=== PATIENT | male | born 1955 | race Caucasian/White ===

== ENCOUNTER 2018-06-21 09:01 | Observation (INO) ==
--- NOTE | 2018-06-21 09:40 | Emergency Department Note ---
Disposition Clinical Impression: Pain of right lower extremity Myositis Qualifiers: Myositis type: unspecified type Myositis location: thigh Laterality: right Qualified Code(s): M60.851 - Other myositis, right thigh Disposition: Admitted As Inpatient Condition: Good Time of Disposition: 14:33 Extremity Problem HPI - General Chief complaint: ED Extremity Problem,Nontraumatic Stated complaint: leg getting worse sp surgery Time Seen by Provider: 06/21/18 09:05 Source: patient Mode of arrival: private vehicle Limitations: no limitations Nursing Notes Reviewed: Yes Vital Signs Reviewed: Yes - History of Present Illness HPI Narrative: Patient is a 62-year-old male who 8 weeks ago had a stent placed in an unknown right thigh artery while living in [place] because he was having trouble with walking and pain. States that the pain started to get worse 4 weeks ago, unable to describe the pain, just states that it hurts. Made worse by walking, made better by elevating it. He has a history of coronary artery bypass graft, UT, brain aneurysm in the right side of his brain, and a Reji filter that he is not sure where it is at. States that he normally lives in [place], he traveled here 2 weeks ago because he wanted to "find doctors who knew what they were doing". Patient states that he had quit smoking right before the surgery, but picked back up when he came to [place] and now smokes about half pack per day, with an occasional drink, denies any illicit or illegal drugs. He is endorsing some numbness and tingling in both of his feet, subjective fevers, abdominal pain and vomiting when he takes a trazodone. Pain Scale: 7 - Related Data Home Medications Medication Instructions Recorded Confirmed Amlodipine Besylate 10 mg PO DAILY 06/21/18 06/21/18 Aspirin [Adult Aspirin] 81 mg PO DAILY 06/21/18 06/21/18 Clopidogrel [Plavix] 75 mg PO DAILY 06/21/18 06/21/18 Ergocalciferol (VITAMIN D2) 400 unit PO DAILY 06/21/18 06/21/18 [Vitamin D] Furosemide [Lasix] 20 mg PO DAILY 06/21/18 06/21/18 Omeprazole [PriLOSEC] 80 mg PO DAILY 06/21/18 06/21/18 Rosuvastatin Calcium [Crestor] 5 mg PO Q48H 06/21/18 06/21/18 Tamsulosin HCl [Flomax] 0.4 mg PO DAILY 06/21/18 06/21/18 Allergies Allergy/AdvReac Type Severity Reaction Status Date / Time No Known Allergies Allergy Verified 06/21/18 13:35 Constitutional: Reports: fever. Denies: chills Cardiovascular: Denies: chest pain, dyspnea on exertion Respiratory: Denies: cough, dyspnea Gastrointestinal: Reports: abdominal pain (when he takes a trazadone), nausea ( when he takes a trazadone). Denies: vomiting, diarrhea, constipation Neurological: Reports: paresthesias (primitivo feet). Denies: headache, weakness Hematological/Lymphatic: Reports: easy bruising (on plavix) Past Medical History - Past Medical History Medical history: Reports: coronary artery disease, GERD, myocardial infarction, peripheral artery disease Psychiatric history: Reports: no psych history - Social History Smoking Status: Current every day smoker Smokeless Tobacco Status: No Alcohol use: Reports: occasionally Drug use: Reports: none Physical Exam Vitals WNL - 96% on RA, 75bpm, 18RR, 127/78, 98.1F - General Limitations: no limitations General appearance: alert, in no apparent distress - Head Head exam: atraumatic, normocephalic - Eye Eye exam: Present: normal appearance, PERRL. Absent: scleral icterus, conjunctival injection - ENT ENT exam: normal exam, normal oropharynx, mucous membranes moist - Neck Neck exam: Present: normal inspection, full ROM - Chest Chest inspection: Present: normal inspection, symmetric chest wall rise, other ( midline scar) - Respiratory Respiratory exam: Present: normal lung sounds bilaterally. Absent: respiratory distress, wheezes - Cardiovascular Cardiovascular exam: Present: regular rate, normal rhythm - Abdominal Exam Abdominal exam: Present: soft, Non-Tender - Expanded Lower Extremity Exam Upper leg exam: Present: swelling, other (scar in right femoral area with swelling and tenderness to palpation running down below his knee) Neurovascular/Tendon exam: Present: other (primitivo dorsalis pedis pulses palpable, right posterior tibialis appreciated with doppler, left palpable.) - Skin Skin exam: Present: warm, dry, intact, other (primitivo LE cool to the touch) Course Course Narrative: In addition to RT LE bypass, pt has a hx of LT LE bypass in the past, will get a CTA Aortogram with runoff to check patency of grafts. Pt also complaining of some subjective fevers so will check coagulation factors and basic blood work to include CBC and BMP to r/o infection. Pt does not have any appreciable wheezes on exam, despite increased mucus production. Recently took up smoking again, increased mucus production could be due to that, will administer duoneb. - Reevaluation(s) Reevaluation #1: Performed bedside TERENCE using handheld doppler and manual sphygmomanometer: Right: 150/140 = 1.07 - Normal Left: 65/140 = .46 - Indicative of Severe arterial disease Time: 12:11 Reevaluation #2: Pt CTA Aortagram with Follow-through did not demonstration pseudoaneurysm or clots, but did demonstrate findings consistent myositis, per radiologist report. Dr Cardoso, Hospitalist, was consulted and was not sure if this would be managed by Orthopedics here or not. 1330: Spoke with Dr Witt, Orthopedist, who stated that he also does not manage myositis and that vascular surgery should be consulted as this is s/p vascular surgery and they may be better versed in complications of such surgeries. 1338: Spoke with Dr. Cason, vascular surgeon, who states that myositis is not a usual complication of a femoral-popliteal bypass graft. Additionally, he states that this could likely, based on his interpretation of the CT, be a chronic hematoma that is resolving, or an inflammatory process. Recommended contact with IR to schedule muscle biopsy. 1500: Spoke with Lashonda in Interventional Radiology who states that they could do a muscle biopsy on Sunday as long as he is NPO after midnight this Sunday. She asked for the patient's name and put him on the schedule. Time: 13:27 Vital Signs Temperature 98.1 F 06/21/18 09:09 Pulse Rate 75 06/21/18 09:09 Respiratory Rate 18 06/21/18 09:09 Blood Pressure 127/78 06/21/18 09:09 O2 Sat by Pulse Oximetry 96 06/21/18 09:09 Temperature 98.1 F 06/21/18 09:13 Pulse Rate 75 06/21/18 14:53 Respiratory Rate 20 06/21/18 14:53 Blood Pressure 122/89 06/21/18 14:53 O2 Sat by Pulse Oximetry 96 06/21/18 14:53 Oxygen Delivery Oxygen Delivery Room Air Extremity Problem, [facility] - [facility] Narrative Medical decision making narrative: Pt's CT scan showed a patent graft on the right leg, did not demonstrate a pseudoaneurysm, but soft tissue findings were concerning for infection v myositis. Additionally, his CK was elevated at 2,526 which is concerning for rhabdomyolysis. He will need to be admitted to the hospital for further management and workup. Interventional radiology will plan to do a muscle biopsy to further determine etiology of CT findings, spoke with Lashonda who placed the patient on the schedule for Sunday and requests he be NPO after midnight on Sunday. Hospitalist Dr. Li who agrees to admit the patient for further management and workup. Explained these findings to the patient and he verbalized that he understood and agreed with the plan. Pt remained stable while in the department. Pain was controlled and needs were addressed. Vital Signs Temperature 98.1 F 06/21/18 09:09 Pulse Rate 75 06/21/18 09:09 Respiratory Rate 18 06/21/18 09:09 Blood Pressure 127/78 06/21/18 09:09 O2 Sat by Pulse Oximetry 96 06/21/18 09:09 Temperature 98.1 F 06/21/18 09:13 Pulse Rate 75 06/21/18 14:53 Respiratory Rate 20 06/21/18 14:53 Blood Pressure 122/89 06/21/18 14:53 O2 Sat by Pulse Oximetry 96 06/21/18 14:53 Oxygen Delivery Oxygen Delivery Room Air - Medical Records Medical records reviewed: Yes I reviewed the patient's medical records. - Lab Data Lab results reviewed: Yes I reviewed the patient's lab results. Result diagrams: 06/21/18 10:05 06/21/18 10:05 Lab Results 06/21/18 06/21/18 06/21/18 Range/Units 10:05 10:05 10:05 WBC 7.0 (4.3-11.1) K/mcL RBC 4.71 (4.19-5.50) M/mcL Hgb 15.0 (12.9-16.9) g/dL Hct 43.6 (37.5-50.1) % MCV 92.6 (83.0-100.0) fL MCH 31.8 (28.0-33.3) pg MCHC 34.4 (31.6-35.5) g/dL RDW 12.4 (11.5-14.5) % Plt Count 230 (140-400) K/mcL MPV 9.7 (9.4-12.4) fL Immature Gran % 0.4 (0-4) % Seg Neutrophils % 72.4 % Lymphocytes % 14.1 % Monocytes % 9.7 % Eosinophils % 2.7 % Basophils % 0.7 % Neutrophils # 5.1 (1.6-8.9) K/mcL Lymphocytes # 1.0 (0.6-4.6) K/mcL Monocytes # 0.7 (0.0-1.3) K/mcL Eosinophils # 0.2 (0.0-0.6) K/mcL Basophils # 0.1 (0.0-0.2) K/mcL ESR (0-10) mm/hr PT 12.1 (9.4-12.1) Seconds INR 1.1 APTT 31.0 (26.0-36.0) Seconds Sodium 131 L (136-145) mEq/L Potassium 4.3 (3.5-5.1) mEq/L Chloride 98 (98-107) mEq/L Carbon Dioxide 23 (23-29) mEq/L BUN 8 (8-23) mg/dL Creatinine 0.87 (0.70-1.30) mg/dL Est GFR ( Amer) > 60 (> 60) Est GFR (Non-Af Amer) > 60 (> 60) BUN/Creatinine Ratio 9 (6-26) Glucose 104 (70-105) mg/dL Calculated Osmolality 271 L (280-300) Calcium 9.6 (8.6-10.3) mg/dL Creatine Kinase 2526 H (30-223) Units/L C-Reactive Protein 22 H (Less than 10) mg/L 06/21/18 Range/Units 12:36 WBC (4.3-11.1) K/mcL RBC (4.19-5.50) M/mcL Hgb (12.9-16.9) g/dL Hct (37.5-50.1) % MCV (83.0-100.0) fL MCH (28.0-33.3) pg MCHC (31.6-35.5) g/dL RDW (11.5-14.5) % Plt Count (140-400) K/mcL MPV (9.4-12.4) fL Immature Gran % (0-4) % Seg Neutrophils % % Lymphocytes % % Monocytes % % Eosinophils % % Basophils % % Neutrophils # (1.6-8.9) K/mcL Lymphocytes # (0.6-4.6) K/mcL Monocytes # (0.0-1.3) K/mcL Eosinophils # (0.0-0.6) K/mcL Basophils # (0.0-0.2) K/mcL ESR 42 H (0-10) mm/hr PT (9.4-12.1) Seconds INR APTT (26.0-36.0) Seconds Sodium (136-145) mEq/L Potassium (3.5-5.1) mEq/L Chloride (98-107) mEq/L Carbon Dioxide (23-29) mEq/L BUN (8-23) mg/dL Creatinine (0.70-1.30) mg/dL Est GFR ( Amer) (> 60) Est GFR (Non-Af Amer) (> 60) BUN/Creatinine Ratio (6-26) Glucose (70-105) mg/dL Calculated Osmolality (280-300) Calcium (8.6-10.3) mg/dL Creatine Kinase (30-223) Units/L C-Reactive Protein (Less than 10) mg/L - Radiology Data Radiology results reviewed: Yes I reviewed the patient's radiology results. Aorta w/Runoff CTA 06/21/18 09:59 IMPRESSION: 1. Status post right lower extremity fem-pop bypass graft placement. The graft is patent. No evidence of acute arterial thrombus. 2. The adductor musculature in the right thigh appears heterogeneous and more prominent when compared with the left. Findings are concerning for myositis. No drainable fluid collection or abscess. 3. Severe vascular atherosclerotic disease. This is most notable for chronic occlusion of the left SFA, with reconstitution of the left popliteal artery, as well as severe bilateral popliteal and tibioperoneal artery stenoses. 4. 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 5. Indeterminate 1.1 cm right adrenal nodule. A follow-up adrenal protocol CT or MRI in 1 year is recommended. D/ / 06/21/2018 12:25:57 Hollis Kwon MD / vi Interpreting Provider: Hollis Kwon MD - EKG Data EKG attestation: Yes I reviewed and interpreted this EKG. EKG results narrative: HR 74, rhythm sinus, axis normal. NE 164, QRS 122. No evidence of ST elevation or depression. Q waves appreciated in II, III, aVF which correlates with hx of UT. Interpretation is limited by poor study quality and baseline wander.
[2018-06-21] MEDS ORDERED: Isovue-370 500 ML INFUS..BTL IV ONE (09:59)
[2018-06-21] MEDS ORDERED: *HR* FentaNYL (PF) 100 MCG/2 ML VIAL IVP ONE ×2 (10:05→12:40)
[2018-06-21 10:18] LABS: Basophils # 0.1 K/mcL (0.0-0.2); Basophils % 0.7 %; Eosinophils # 0.2 K/mcL (0.0-0.6); Eosinophils % 2.7 %; Hematocrit 43.6 % (37.5-50.1); Immature Granulocytes % 0.4 % (0-4); Lymphocytes % 14.1 %; Mean Corpuscular HGB Conc 34.4 g/dL (31.6-35.5); Mean Corpuscular Hemoglobin 31.8 pg (28.0-33.3); Mean Corpuscular Volume 92.6 fL (83.0-100.0); Mean Platelet Volume 9.7 fL (9.4-12.4); Monocytes # 0.7 K/mcL (0.0-1.3); Monocytes % 9.7 %; Neutrophils # 5.1 K/mcL (1.6-8.9); Platelet Count 230 K/mcL (140-400); Red Blood Count 4.71 M/mcL (4.19-5.50); Red Cell Distribution Width 12.4 % (11.5-14.5); Segmented Neutrophils % 72.4 %
[2018-06-21 10:27] LABS: INR 1.1; Prothrombin Time 12.1 Seconds (9.4-12.1)
[2018-06-21 10:38] LABS: BUN/Creatinine Ratio 9 (6-26); Blood Urea Nitrogen 8 mg/dL (8-23); Calcium 9.6 mg/dL (8.6-10.3); Carbon Dioxide 23 mEq/L (23-29); Chloride 98 mEq/L (98-107); Glucose 104 mg/dL (70-105); Osmolality,Calculated 271 (280-300); Potassium 4.3 mEq/L (3.5-5.1); Sodium 131 mEq/L (136-145); eGFR For Non-African Americans > 60 (> 60)
--- NOTE | 2018-06-21 11:27 | Emergency Department Note ---
Disposition Clinical Impression: Pain of right lower extremity Disposition: Still a Patient Forms: ED Satisfaction Letter General Adult HPI - General Chief complaint: ED Extremity Problem,Nontraumatic Stated complaint: leg getting worse sp surgery Time Seen by Provider: 06/21/18 09:05 Source: patient Mode of arrival: private vehicle Limitations: no limitations - History of Present Illness HPI Narrative: ED attending Attestation note Patient was seen with the emergency medicine resident Mari Jaime: I have independently evaluated the patient and have had [id number] contact with the patient. I have reviewed the history and physical, evaluation and management plan in addition to the pertinent laboratory, ancillary and imaging studies along with consultation recommendations if applicable. I agree with their evaluation, management and disposition. Briefly: 62-year-old male had surgery at the end of april attestation in [place] for stent in his right leg. Presents with right leg pain. Past several days of Cipro but no recorded fever. History pulses there is no peripheral edema neurovascular copy was noted the sites appear to be healing well although tender on Palpation near the Right Inguinal Crease Is No Signs of Wound Infection Leading for Tissue Necrosis. Patient Will Get a Aortogram with Runoff to Evaluate This Lower Extremity of Systems and Check for among Other Things Pseudoaneurysm Infection Blockage Dissection among Others. Disposition Pending Pain Scale: 10 - Related Data Home Medications Medication Instructions Recorded Confirmed Amlodipine Besylate 10 mg PO DAILY 06/21/18 06/21/18 Clopidogrel [Plavix] 75 mg PO DAILY 06/21/18 06/21/18 Furosemide [Lasix] 20 mg PO DAILY 06/21/18 06/21/18 Rosuvastatin [Crestor] 5 mg PO HS 06/21/18 06/21/18 Allergies Allergy/AdvReac Type Severity Reaction Status Date / Time clopidogrel [From Plavix] Allergy Rash Verified 04/04/16 15:29 Constitutional: Reports: fever. Denies: chills Cardiovascular: Denies: chest pain, dyspnea on exertion Respiratory: Denies: cough, dyspnea Gastrointestinal: Reports: abdominal pain (when he takes a trazadone), nausea ( when he takes a trazadone). Denies: vomiting, diarrhea, constipation Neurological: Reports: paresthesias (primitivo feet). Denies: headache, weakness Hematological/Lymphatic: Reports: easy bruising (on plavix) Past Medical History - Past Medical History Medical history: Reports: coronary artery disease, GERD, myocardial infarction, peripheral artery disease Psychiatric history: Reports: no psych history - Social History Smoking Status: Current every day smoker Smokeless Tobacco Status: No Alcohol use: Reports: occasionally Drug use: Reports: none Physical Exam - General Limitations: no limitations General appearance: alert, in no apparent distress Course Vital Signs Temperature 98.1 F 06/21/18 09:09 Pulse Rate 75 06/21/18 09:09 Respiratory Rate 18 06/21/18 09:09 Blood Pressure 127/78 06/21/18 09:09 O2 Sat by Pulse Oximetry 96 06/21/18 09:09 Temperature 98.1 F 06/21/18 09:13 Pulse Rate 73 06/21/18 10:54 Respiratory Rate 20 06/21/18 10:54 Blood Pressure 152/82 06/21/18 10:54 O2 Sat by Pulse Oximetry 100 06/21/18 10:54 Oxygen Delivery Oxygen Delivery Room Air Medical Decision Making - Lab Data Result diagrams: 06/21/18 10:05 06/21/18 10:05 Lab Results 06/21/18 06/21/18 06/21/18 Range/Units 10:05 10:05 10:05 WBC 7.0 (4.3-11.1) K/mcL RBC 4.71 (4.19-5.50) M/mcL Hgb 15.0 (12.9-16.9) g/dL Hct 43.6 (37.5-50.1) % MCV 92.6 (83.0-100.0) fL MCH 31.8 (28.0-33.3) pg MCHC 34.4 (31.6-35.5) g/dL RDW 12.4 (11.5-14.5) % Plt Count 230 (140-400) K/mcL MPV 9.7 (9.4-12.4) fL Immature Gran % 0.4 (0-4) % Seg Neutrophils % 72.4 % Lymphocytes % 14.1 % Monocytes % 9.7 % Eosinophils % 2.7 % Basophils % 0.7 % Neutrophils # 5.1 (1.6-8.9) K/mcL Lymphocytes # 1.0 (0.6-4.6) K/mcL Monocytes # 0.7 (0.0-1.3) K/mcL Eosinophils # 0.2 (0.0-0.6) K/mcL Basophils # 0.1 (0.0-0.2) K/mcL PT 12.1 (9.4-12.1) Seconds INR 1.1 APTT 31.0 (26.0-36.0) Seconds Sodium 131 L (136-145) mEq/L Potassium 4.3 (3.5-5.1) mEq/L Chloride 98 (98-107) mEq/L Carbon Dioxide 23 (23-29) mEq/L BUN 8 (8-23) mg/dL Creatinine 0.87 (0.70-1.30) mg/dL Est GFR ( Amer) > 60 (> 60) Est GFR (Non-Af Amer) > 60 (> 60) BUN/Creatinine Ratio 9 (6-26) Glucose 104 (70-105) mg/dL Calculated Osmolality 271 L (280-300) Calcium 9.6 (8.6-10.3) mg/dL
[2018-06-21] MEDS ORDERED: *HR* OxyCODONE/APAP 5/325 TABLET PO ONE (12:40)
[2018-06-21 13:05] LABS: C-Reactive Protein 22 mg/L (Less than 10); Creatine Kinase 2526 Units/L (30-223)
[2018-06-21] MEDS ORDERED: Naloxone 0.4 MG/ML INJ IVP PRN (15:43)
[2018-06-21] MEDS ORDERED: Acetaminophen 325 MG TABLET PO PRN (15:43)
--- NOTE | 2018-06-21 15:54 | Internal Med History&Physical ---
Date of Encounter: 06/21/18 Time of Encounter: 15:52 Internal Medicine - H&P: HPI Admitted From: Home Plans for Post Hospital Care: Home History of present illness: Patient is a 62-year-old male who 8 weeks ago had a stent placed in an unknown right thigh artery because he was having trouble with walking and pain. States that the pain started to get worse 4 weeks ago, unable to describe the pain, just states that it hurts. Made worse by walking, made better by elevating it. He has a history of coronary artery bypass graft, [place], brain aneurysm in the right side of his brain, and a Reji filter. States that he normally lives in [place], he traveled here 2 weeks ago because he wanted to "find doctors who knew what they were doing". Patient states that he had quit smoking right before the surgery, but picked back up when he came to [place] and now smokes about half pack per day, with an occasional drink, denies any illicit or illegal drugs. He is endorsing some numbness and tingling in both of his feet, subjective fevers, abdominal pain and vomiting when he takes trazodone. At the ED, patient vital signs were stable, labs revealed elevated CPK, CTA of the abdomen and lower treatment showed patent right side femoropopliteal bypass graft, chronic occlusion of bilateral internal iliac artery, a right external iliac artery stent is patent, there is a moderate proximal juxta stent stenosis , the right profunda femoris is severely diseased, with severe stenosis present , the adductor musculature in the right thigh appears heterogeneously and more prominent when compared with the left, findings are concerning for myositis. Due to his severe symptoms, patient will be admitted as observation for further evaluation. Past Med Surg Social Fam HX - Past Medical History Medical history: coronary artery disease, GERD, myocardial infarction, peripheral artery disease Psychiatric history: no psych history - Past Surgical History Additional surgical history: aneurysm right brain - Social History Smoking Status: Current every day smoker Smokeless Tobacco Status: No Alcohol use: occasionally Drug use: none Internal Medicine - H&P: Meds Amlodipine Besylate 10 mg PO DAILY 06/21/18 [History] Aspirin [Adult Aspirin] 81 mg PO DAILY 06/21/18 [History] Clopidogrel [Plavix] 75 mg PO DAILY 06/21/18 [History] Ergocalciferol (VITAMIN D2) [Vitamin D] 400 unit PO DAILY 06/21/18 [History] Furosemide [Lasix] 20 mg PO DAILY 06/21/18 [History] Omeprazole [PriLOSEC] 80 mg PO DAILY 06/21/18 [History] Rosuvastatin Calcium [Crestor] 5 mg PO Q48H 06/21/18 [History] Tamsulosin HCl [Flomax] 0.4 mg PO DAILY 06/21/18 [History] 3 Allergy/AdvReac Type Severity Reaction Status Date / Time No Known Allergies Allergy Verified 06/21/18 13:35 All Systems PM: A 10-system review of systems was performed and is negative for pertinent findings except as documented above in the HPI. Review of systems: REVIEW OF SYSTEMS: CONSTITUTIONAL: No weight loss, fever, chills, weakness or fatigue. HEENT: Eyes: No visual loss, blurred vision, double vision or yellow sclerae. Ears, Nose, Throat: No hearing loss, sneezing, congestion, runny nose or sore throat. SKIN: No rash or itching. CARDIOVASCULAR: No chest pain, chest pressure or chest discomfort. No palpitations or edema. RESPIRATORY: No shortness of breath, cough or sputum. GASTROINTESTINAL: No anorexia, nausea, vomiting or diarrhea. No abdominal pain or blood. GENITOURINARY: No dysuria, urgency, or frequency. NEUROLOGICAL: No headache, dizziness, syncope, paralysis, ataxia, numbness or tingling in the extremities. No change in bowel or bladder control. MUSCULOSKELETAL: see HPI. HEMATOLOGIC: No anemia, bleeding or bruising. LYMPHATICS: No enlarged nodes. No history of splenectomy. PSYCHIATRIC: No history of depression or anxiety. ENDOCRINOLOGIC: No reports of sweating, cold or heat intolerance. No polyuria or polydipsia. - Constitutional Vitals: Temp Pulse Resp BP Pulse Ox 98.1 F 75 20 122/89 96 06/21/18 09:13 06/21/18 14:53 06/21/18 14:53 06/21/18 14:53 06/21/18 14:53 General appearance: Present: cooperative, A&O X 3, answers questions appropriately Exam: PHYSICAL EXAMINATION: GENERAL APPEARANCE: The patient is alert, oriented and in no acute distress. HEENT: Head is normocephalic. The sinuses are nontender. Pupils are equal and reactive. The nares are patent. Oropharynx clear without lesions. NECK: Supple without lymphadenopathy. HEART: Regular rate and rhythm. LUNGS: No crackles or wheezes are heard. ABDOMEN: Soft, nontender, nondistended with good bowel sounds heard. Inguinal area is normal. EXTREMITIES: right inner thigh cold and tender by palpation. right pedal pulse is palpable. left leg is cold to touch with faint pedal pulse. NEUROLOGICAL: Gross nonfocal. SKIN: Warm and dry without any rash. Internal Med - H&P Results - Labs CBC & Chem 7: 06/21/18 10:05 06/21/18 10:05 - Assessment and plan (1) Pain of right lower extremity Current Visit: Yes Status: Acute Assessment and plan: 62-year-old male with past medical history of severe PVD, status post recent stent placement to right external iliac artery 8 weeks ago presented with severe right leg pain. Per patient, pain started about 4 weeks ago, mainly located to the right internal thigh, worsened by walking, palpation, or movement. On the physical exam, right inner thigh is cold, tender to palpation , and the painful area is well demarcated. Labs revealed elevated CPK. 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 - Pain of the right lower extremity likely is caused by muscle damage/ inflammation of right adductor musculature. he also had elevated CPR and ESR, however, those are very nonspecific, and can be caused by infection, inflammation, muscle damage, or recent procedures. Given the severely stenosed right profunda femoris artery, which supplies blood to the right adductor muscle , it is possible that muscle damage/possible myositis is caused by severe ischemia. - Inflammatory myositis such as polymyositis/inclusion body myositis/ dermatomyositis was on the differential, although is less likely, EULALIO and aldose were ordered. May consult rheumatology if indicated. - IR was also consulted, planning muscle biopsy on next Sunday. We also will consult vascular surgery. (2) Myositis Current Visit: Yes Status: Acute Assessment and plan: Management same as above. Qualifiers: Myositis type: unspecified type Myositis location: thigh Laterality: right Qualified Code(s): M60.851 - Other myositis, right thigh (3) Rhabdomyolysis Current Visit: Yes Status: Acute Assessment and plan: We will continue IV fluid, monitor CPK, monitor renal function panel. Qualifiers: Rhabdomyolysis type: non-traumatic Qualified Code(s): M62.82 - Rhabdomyolysis (4) PVD (peripheral vascular disease) with claudication Current Visit: No Status: Chronic Assessment and plan: Same as above. (5) CAD (coronary artery disease) Current Visit: No Status: Chronic Assessment and plan: Patient has no chest pain, continue home medication including aspirin and Plavix. Qualifiers: Coronary Disease-Associated Artery/Lesion type: [place] artery [place] vs. transplanted heart: [place] heart Associated angina: without angina Qualified Code(s): I25.10 - Atherosclerotic heart disease of [place] coronary artery without angina pectoris (6) Brain aneurysm Current Visit: No Status: Chronic Assessment and plan: Stable, monitoring. (7) DVT prophylaxis Current Visit: Yes Status: Acute Assessment and plan: Heparin subcutaneous. - Time Spent With Patient Total time spent is greater than 50% in coordination of care (as documented) at patient's floor/unit and/or counseling patient: Greater than 35 minutes
[2018-06-21] MEDS: 0.9 % Sodium Chloride 1,000 ML IVC SCH (17:03)
[2018-06-21] MEDS: traMADol 50 MG TABLET PO PRN (17:03)
--- NOTE | 2018-06-21 17:52 | Electrocardiograph Report ---
[place] [facility] Test Date: 2018-06-21 Pat Name: Nikolay Jones Department: EXAM6 Room: 3A22 Gender: M [employer]: : 1955 Requested By: Mari Jaime Order Number: [id number] Reading MD: Hipolito Sousa Measurements Intervals [place] Rate: 74 P: 75 IA: 164 QRS: 65 QRSD: 122 T: -44 QT: 406 QTc: 451 Interpretive Statements Sinus rhythm Nonspecific intraventricular conduction delay Inferior infarct, age indeterminate Lateral leads are also involved Electronically Signed On 06-21-2018 17:51:18 EDT by Hipolito Sousa
[2018-06-21] MEDS: *HR* Heparin 5,000 UNIT/ML VIAL SQ SCH (19:10)
[2018-06-22] MEDS: Piperacillin/Tazobactam 3.375 GM in 0.9 % Sodium Chloride Mini Bag 100 ML IVPB SCH ×3 (00:04→17:52)
--- NOTE | 2018-06-22 00:39 | Vascular/Endovasc Consult Note ---
Date of Encounter: 06/21/18 Time of Encounter: 17:15 Assessment and Plan (1) Pain of right lower extremity Current Visit: Yes Status: Acute I have reviewed the physical exam as well as the CT angiogram performed earlier today. The bypass graft is patent. Patient appears to have a resolving hematoma in the abductor muscles of the right mid thigh. I do not see any signs of active bleeding, pseudoaneurysm, abscess, or air-fluid levels. The right lower extremity pain does not warrant any vascular surgical intervention. I recommended a conservative course with application of a heating pad to the right thigh and consultation with physical therapy. (2) PVD (peripheral vascular disease) with claudication Current Visit: No Status: Chronic The patient has significant bilateral lower extremity atherosclerotic disease on the basis of his history as well as the CT scan from earlier today. I have personally reviewed the CT angiogram performed earlier today. Patient was advised to refrain from all tobacco use. Patient was recommended to undergo routine outpatient vascular surgery follow- up wherever he decides to reside permanently. I explained that he will need follow-up with noninvasive testing including ankle-brachial index and duplex imaging of the graft. Continue antilipid and antiplatelet therapy. I do not believe the area in question represents an infection. (3) Tobacco abuse Current Visit: Yes Status: Chronic Patient has a long-standing history of tobacco abuse. He was smoking 2 packs a day prior to his recent surgery. He states he is now down to 2 cigarettes a day. He was instructed to refrain from any tobacco exposure. - History of Present Illness Consult date: 06/21/18 Requesting physician: Jenna Marvin Consult reason: Right leg pain Chief complaint: Right leg pain History of present illness: Mr. Jones is a 62 year old male Who was seen in consultation on 3a because of concerns regarding the right lower extremity. The patient was admitted via the emergency room earlier today. The patient gives a history of having undergone a right femoral- popliteal bypass graft in [place] approximately 8 weeks ago. He states that his right lower extremity pain never improved and actually worsened after the bypass graft. In particular he noted worsening in the last 4 weeks. The patient was on his way to [place] and for reasons that are unclear he stopped in [place] and came to [place]. He states that he has discomfort in the right lower extremity 24 7. He needs to use either wheelchair or crutches to help him ambulate. He denies any left lower extremity discomfort at this time. As best I can tell the patient was suffering from right lower extremity claudication that led to the bypass graft. The bypass graft is a common femoral to [id number] popliteal artery bypass graft with PTFE. There is also question of a stent placed distal to the bypass graft but the patient has no knowledge of this and is unsure as to what the exact procedure was that he had undergone for the right lower extremity. The patient is also status post left lower extremity intervention in the past and apparently has had multiple stents placed in the left superficial femoral artery. These stents are occluded. The patient is status post triple-vessel bypass at [facility]. The patient is status post brain tumor removal at all issue. Patient is status post IVC filter placement. Past Med Surg Social Fam HX - Past Medical History Medical history: coronary artery disease, GERD, myocardial infarction, peripheral artery disease Psychiatric history: no psych history - Past Surgical History Surgical History: coronary bypass (CABG) (At [facility]), IVC Filter, other (Patient is status post brain surgery at [facility]) Additional surgical history: aneurysm right brain - Social History Smoking Status: Current every day smoker Smokeless Tobacco Status: No Alcohol use: occasionally Drug use: none Medications and Allergies Amlodipine Besylate 10 mg PO DAILY 06/21/18 [History] Aspirin [Adult Aspirin] 81 mg PO DAILY 06/21/18 [History] Clopidogrel [Plavix] 75 mg PO DAILY 06/21/18 [History] Ergocalciferol (VITAMIN D2) [Vitamin D] 400 unit PO DAILY 06/21/18 [History] Furosemide [Lasix] 20 mg PO DAILY 06/21/18 [History] Omeprazole [PriLOSEC] 80 mg PO DAILY 06/21/18 [History] Rosuvastatin Calcium [Crestor] 5 mg PO Q48H 06/21/18 [History] Tamsulosin HCl [Flomax] 0.4 mg PO DAILY 06/21/18 [History] 3 Allergy/AdvReac Type Severity Reaction Status Date / Time No Known Allergies Allergy Verified 06/21/18 13:35 All Systems Review: The remainder of the systems were reviewed and are negative Exam General: Present: Conversant, No Apparent Distress, Well developed, Well nourished HEENT: Present: Atraumatic, Normocephaly, Trachea midline, Pupils equal Neck: Absent: JVD, Left Carotid bruit, Right Carotid bruit, Midline deformity, Tracheal deviation Cardiac: Present: Reg Rate and Rhythm, Normal S1 and S2, No Murmur Lungs: Present: Normal Breath Sounds Neuro: Present: Alert and responsive, No focal deficits noted, Cranial nerves grossly intact, Motor nerves grossly intact, Sensory nerves grossly intact Abdomen: Present: Soft, Non-tender, Other (No abdominal bruits). Absent: Masses Vascular: Present: Pulse, absent (No palpable left popliteal or pedal pulse.), Pulse, normal (The patient has palpable femoral pulses bilaterally. Patient has a palpable right popliteal pulse and dorsalis pedis pulse.), Color/ Temperature (The right foot is warm and pink. He has less than 2 second capillary refill of the right foot and toes. The left foot is warm but not as warm as the right foot.), Surgical incisions (The patient has a right groin incision and a right [id number]-[id number] popliteal incision that are well-healed and represent the recent surgical incisions for the femoral-popliteal bypass graft in [place].) Skin: Present: No rashes noted on visualized skin. Absent: Wound/ulcer(s) Musculoskeletal: Present: Other (The patient has induration with mild discoloration in the midportion of the right mid thigh medially. This area is slightly tender to touch. It is nonpulsatile. There are no bruits over this area. This corresponds to the findings on the CT angiogram consistent with a subacute hematoma.) Consult Discharge Plan - Plan Referrals: NONE,PCP [Primary Care Provider] -
[2018-06-22 02:14] LABS: Alanine Aminotransferase 41 Units/L (7-52); Albumin 3.4 g/dL (3.5-5.7); Albumin/Globulin Ratio 1.2 (1.1-2.2); Alkaline Phosphatase 62 Units/L (34-104); Aspartate Amino Transferase 53 Units/L (13-39); BUN/Creatinine Ratio 12 (6-26); Bilirubin,Total 0.6 mg/dL (0.3-1.0); Blood Urea Nitrogen 9 mg/dL (8-23); Calcium 8.7 mg/dL (8.6-10.3); Carbon Dioxide 24 mEq/L (23-29); Chloride 102 mEq/L (98-107); Creatine Kinase 2211 Units/L (30-223); Globulin 2.8 g/dL (2.4-3.5); Glucose 100 mg/dL (70-105); Osmolality,Calculated 271 (280-300); Potassium 3.5 mEq/L (3.5-5.1); Sodium 131 mEq/L (136-145); Total Protein 6.2 g/dL (6.4-8.9); eGFR For Non-African Americans > 60 (> 60)
[2018-06-22] MEDS: 0.9 % Sodium Chloride 1,000 ML IVC SCH ×4 (03:06→23:45)
[2018-06-22] MEDS: traMADol 50 MG TABLET PO PRN ×2 (06:20→13:15)
[2018-06-22] MEDS: *HR* Heparin 5,000 UNIT/ML VIAL SQ SCH (06:20)
[2018-06-22] MEDS: Cholecalciferol (D-3) 1,000 UNIT TABLET PO SCH (07:47)
[2018-06-22] MEDS: Aspirin Enteric Coated 81 MG Tablet PO SCH (07:48)
[2018-06-22] MEDS: amLODIPine 5 MG TABLET PO SCH (07:48)
[2018-06-22] MEDS ORDERED: traMADol 50 MG TABLET PO PRN (13:51)
--- NOTE | 2018-06-22 16:42 | Internal Med Progress Note ---
Hospitalist Progress Note - Encounter Date of Encounter: 06/22/18 Time of Encounter: 15:00 - Subjective Interval History: Patient continued to complain of right side pain 6 out of 10 in severity worse with walking,Better with pain medication but does not last so long. No chest pain or shortness of breath - Exam Vitals: Temp Pulse Resp BP Pulse Ox 98.1 F 74 16 125/74 96 06/22/18 15:27 06/22/18 15:27 06/22/18 15:27 06/22/18 15:27 06/22/18 15:27 Exam: PHYSICAL EXAMINATION: GENERAL APPEARANCE: The patient is alert, oriented and in no acute distress. HEENT: Head is normocephalic. The sinuses are nontender. Pupils are equal and reactive. The nares are patent. Oropharynx clear without lesions. NECK: Supple without lymphadenopathy. HEART: Regular rate and rhythm. LUNGS: No crackles or wheezes are heard. ABDOMEN: Soft, nontender, nondistended with good bowel sounds heard. Inguinal area is normal. EXTREMITIES: right inner thigh tender by palpation. Right lower extremities warm, no sensory changes, moving bilateral feet without any problem NEUROLOGICAL: Gross nonfocal. SKIN: Warm and dry without any rash. - Assessment and Plan (1) Pain of right lower extremity Current Visit: Yes Status: Acute (2) Rhabdomyolysis Current Visit: Yes Status: Acute (3) PVD (peripheral vascular disease) with claudication Current Visit: No Status: Chronic (4) CAD (coronary artery disease) Current Visit: No Status: Chronic (5) DVT prophylaxis Current Visit: Yes Status: Acute - Summary of Assessment and Plan Summary of Assessment and Plan: Appreciate vascular surgery consult, continue conservative management, titrate the medication for pain control. Continue IV fluid for rhabdomyolysis, if any signs of fluid overload was start Lasix but at the same time we will continue fluid, monitor creatinine phosphokinase, counseling patient about ice packing, with his continue heparin in view of his hematoma, SCD for DVT prophylaxis. Close monitoring of H&H. - Time Spent with Patient Total time spent is greater than 50% in coordination of care (as documented) at patient's floor/unit and/or counseling patient: 25 - 35 minutes Internal Medicine: Result - Labs CBC & Chem 7: 06/21/18 10:05 06/22/18 01:04 Labs: BMP 06/22/18 01:04 Sodium 131 L Potassium 3.5 Chloride 102 Carbon Dioxide 24 BUN 9 Creatinine 0.78 Glucose 100 Calcium 8.7 Liver Function 06/22/18 Range/Units 01:04 Total Bilirubin 0.6 (0.3-1.0) mg/dL AST 53 H (13-39) Units/L ALT 41 (7-52) Units/L Alkaline Phosphatase 62 (34-104) Units/L Albumin 3.4 L (3.5-5.7) g/dL - ABG Interpretation ABG results: PT/INR, D-dimer PT 12.1 Seconds (9.4-12.1) 06/21/18 10:05 Consult Discharge Plan - Plan Referrals: NONE,PCP [Primary Care Provider] - (2) Rhabdomyolysis Qualifiers: Rhabdomyolysis type: non-traumatic Qualified Code(s): M62.82 - Rhabdomyolysis (4) CAD (coronary artery disease) Qualifiers: Coronary Disease-Associated Artery/Lesion type: [place] artery [place] vs. transplanted heart: [place] heart Associated angina: without angina Qualified Code(s): I25.10 - Atherosclerotic heart disease of [place] coronary artery without angina pectoris
[2018-06-22] MEDS ORDERED: methylPREDNISolone 125 MG/2 ML VIAL IVP ONE (17:37)
[2018-06-22] MEDS ORDERED: Famotidine 20 MG/2 ML VIAL IVP ONE (17:39)
[2018-06-22] MEDS: Gabapentin 100 MG CAPSULE PO SCH ×2 (17:51→19:41)
[2018-06-23] MEDS: methylPREDNISolone 125 MG/2 ML VIAL IVP SCH ×3 (00:57→17:01)
[2018-06-23] MEDS: Piperacillin/Tazobactam 3.375 GM in 0.9 % Sodium Chloride Mini Bag 100 ML IVPB SCH ×2 (00:58→09:11)
[2018-06-23 03:40] LABS: Basophils % 0.1 %; Eosinophils % 0.1 %; Hematocrit 46.1 % (37.5-50.1); Hemoglobin 15.6 g/dL (12.9-16.9); Immature Granulocytes % 0.6 % (0-4); Lymphocytes # 0.4 K/mcL (0.6-4.6); Lymphocytes % 5.1 %; Mean Corpuscular HGB Conc 33.8 g/dL (31.6-35.5); Mean Corpuscular Hemoglobin 31.7 pg (28.0-33.3); Mean Corpuscular Volume 93.7 fL (83.0-100.0); Mean Platelet Volume 9.7 fL (9.4-12.4); Monocytes # 0.1 K/mcL (0.0-1.3); Monocytes % 1.1 %; Neutrophils # 6.6 K/mcL (1.6-8.9); Platelet Count 220 K/mcL (140-400); Red Blood Count 4.92 M/mcL (4.19-5.50); Red Cell Distribution Width 12.2 % (11.5-14.5)
[2018-06-23 03:58] LABS: BUN/Creatinine Ratio 10 (6-26); Blood Urea Nitrogen 6 mg/dL (8-23); Calcium 8.9 mg/dL (8.6-10.3); Carbon Dioxide 18 mEq/L (23-29); Chloride 102 mEq/L (98-107); Glucose 158 mg/dL (70-105); Osmolality,Calculated 271 (280-300); Potassium 3.8 mEq/L (3.5-5.1); Sodium 130 mEq/L (136-145); eGFR For Non-African Americans > 60 (> 60)
[2018-06-23] MEDS: amLODIPine 5 MG TABLET PO SCH (09:10)
[2018-06-23] MEDS: Gabapentin 100 MG CAPSULE PO SCH ×3 (09:10→21:16)
[2018-06-23] MEDS: Aspirin Enteric Coated 81 MG Tablet PO SCH (09:11)
[2018-06-23] MEDS: *HR* HYDROcodone/Acet 5/325 mg TABLET PO PRN ×2 (09:11→16:05)
[2018-06-23] MEDS: Cholecalciferol (D-3) 1,000 UNIT TABLET PO SCH (09:11)
[2018-06-23 12:39] LABS: Creatine Kinase 1553 Units/L (30-223)
--- NOTE | 2018-06-23 16:55 | Internal Med Progress Note ---
Hospitalist Progress Note - Encounter Date of Encounter: 06/23/18 Time of Encounter: 16:52 - Subjective Interval History: Patient stated his muscle pain is improving, patient can ambulate without any problem, patient denies any fever or chills, had some mild rash on his back after receiving Zosyn improving with steroid - Exam Vitals: Temp Pulse Resp BP Pulse Ox 97.7 F 59 16 153/67 93 06/23/18 12:57 06/23/18 12:57 06/23/18 12:57 06/23/18 12:57 06/23/18 12:57 Exam: PHYSICAL EXAMINATION: GENERAL APPEARANCE: The patient is alert, oriented and in no acute distress. HEENT: Head is normocephalic. The sinuses are nontender. Pupils are equal and reactive. The nares are patent. Oropharynx clear without lesions. NECK: Supple without lymphadenopathy. HEART: Regular rate and rhythm. LUNGS: No crackles or wheezes are heard. ABDOMEN: Soft, nontender, nondistended with good bowel sounds heard. Inguinal area is normal. EXTREMITIES: right inner thigh tender by palpation. Right lower extremities warm, no sensory changes, moving bilateral feet without any problem NEUROLOGICAL: Gross nonfocal. SKIN: Warm and dry without any rash. - Assessment and Plan (1) Pain of right lower extremity Current Visit: Yes Status: Acute (2) Rhabdomyolysis Current Visit: Yes Status: Acute (3) PVD (peripheral vascular disease) with claudication Current Visit: No Status: Chronic (4) CAD (coronary artery disease) Current Visit: No Status: Chronic (5) DVT prophylaxis Current Visit: Yes Status: Acute - Summary of Assessment and Plan Summary of Assessment and Plan: Continue IV fluids, encouraged oral hydration, close monitoring of fluid status , resume the risks as needed, no evidence of infection currently, close monitoring for any fever or chills or leukocytosis, his creatinine kinase is still up, discussed with patient about the hydration to avoid renal failure, recheck CK next morning, if itis trending down ,may consider discharge next 24- hour - Time Spent with Patient Total time spent is greater than 50% in coordination of care (as documented) at patient's floor/unit and/or counseling patient: Greater than 35 minutes Internal Medicine: Result - Labs CBC & Chem 7: 06/23/18 03:22 06/23/18 03:22 Labs: Short CBC 06/23/18 Range/Units 03:22 WBC 7.1 (4.3-11.1) K/mcL Hgb 15.6 (12.9-16.9) g/dL Hct 46.1 (37.5-50.1) % Plt Count 220 (140-400) K/mcL Neutrophils # 6.6 (1.6-8.9) K/mcL BMP 06/23/18 03:22 Sodium 130 L Potassium 3.8 Chloride 102 Carbon Dioxide 18 L BUN 6 L Creatinine 0.59 L Glucose 158 H Calcium 8.9 - ABG Interpretation ABG results: PT/INR, D-dimer PT 12.1 Seconds (9.4-12.1) 06/21/18 10:05 Consult Discharge Plan - Plan Referrals: NONE,PCP [Primary Care Provider] - Exam - Vital Signs Vital signs: Initial Vital Signs Temp Pulse Resp BP Pulse Ox 98.1 F 75 18 127/78 96 06/21/18 09:09 06/21/18 09:09 06/21/18 09:09 06/21/18 09:09 06/21/18 09:09 Vital Signs - Last 8 Hours Temp Pulse Resp BP Pulse Ox 06/23/18 16:53 97.9 F 57 17 160/74 97 06/23/18 12:57 97.7 F 59 16 153/67 93 Intake and Output 06/23/18 06/23/18 06/23/18 07:59 15:59 23:59 Intake Total 100 / 100 120 / 120 120 / 120 Output Total 1200 / 1200 0 / 0 1200 / 1200 Balance -1100 / -1100 120 / 120 -1080 / -1080 Intake: IV Fluids 100 / 100 Zosyn 3.375 GM In 0.9 % Sodium 100 / 100 Chloride (Mini-Bag +) 100 ML @ 25 mls/hr IVPB Q8HR REPLACED BY [facility] Rx#: [id number] Oral 120 / 120 120 / 120 Output: Urine 1200 / 1200 0 / 0 1200 / 1200 - General Appearance General appearance: well-developed, well-nourished EENT: mucous membranes moist, hearing intact Neck: no JVD Respiratory: no kyphosis, no scoliosis Cardiology: no murmurs, no rub, no gallops, no edema, regular rate, regular rhythm, normal S1, normal S2 Gastrointestinal: normoactive bowel sounds, no tenderness, no guarding, no organomegaly Neurologic: no focal deficit, alert and oriented x3, CN 3-12 intact Musculoskeletal: no cyanosis, no clubbing (2) Rhabdomyolysis Qualifiers: Rhabdomyolysis type: non-traumatic Qualified Code(s): M62.82 - Rhabdomyolysis (4) CAD (coronary artery disease) Qualifiers: Coronary Disease-Associated Artery/Lesion type: [place] artery [place] vs. transplanted heart: [place] heart Associated angina: without angina Qualified Code(s): I25.10 - Atherosclerotic heart disease of [place] coronary artery without angina pectoris
[2018-06-23] MEDS ORDERED: methylPREDNISolone 125 MG/2 ML VIAL ONE (16:57)
[2018-06-23] MEDS ORDERED: methylPREDNISolone 125 MG/2 ML VIAL IVP ONE (17:00)
[2018-06-24] MEDS: 0.9 % Sodium Chloride 1,000 ML IVC SCH (01:11)
[2018-06-24 05:40] LABS: Basophils % 0.1 %; Eosinophils % 0.4 %; Hematocrit 41.8 % (37.5-50.1); Immature Granulocytes % 0.5 % (0-4); Lymphocytes # 0.6 K/mcL (0.6-4.6); Lymphocytes % 5.2 %; Mean Corpuscular HGB Conc 33.5 g/dL (31.6-35.5); Mean Corpuscular Hemoglobin 31.5 pg (28.0-33.3); Mean Corpuscular Volume 94.1 fL (83.0-100.0); Mean Platelet Volume 10.1 fL (9.4-12.4); Monocytes # 0.5 K/mcL (0.0-1.3); Monocytes % 4.9 %; Neutrophils # 9.4 K/mcL (1.6-8.9); Platelet Count 218 K/mcL (140-400); Red Blood Count 4.44 M/mcL (4.19-5.50); Red Cell Distribution Width 12.2 % (11.5-14.5); Segmented Neutrophils % 88.9 %
[2018-06-24 06:01] LABS: BUN/Creatinine Ratio 15 (6-26); Blood Urea Nitrogen 9 mg/dL (8-23); Carbon Dioxide 25 mEq/L (23-29); Chloride 103 mEq/L (98-107); Creatine Kinase 1461 Units/L (30-223); Glucose 117 mg/dL (70-105); Osmolality,Calculated 280 (280-300); Potassium 3.4 mEq/L (3.5-5.1); Sodium 135 mEq/L (136-145); eGFR For Non-African Americans > 60 (> 60)
[2018-06-24 06:29] VITALS: BP 156/66
[2018-06-24] MEDS: Gabapentin 100 MG CAPSULE PO SCH (07:09)
[2018-06-24] MEDS: amLODIPine 5 MG TABLET PO SCH (07:10)
[2018-06-24] MEDS: Aspirin Enteric Coated 81 MG Tablet PO SCH (07:10)
[2018-06-24] MEDS: Cholecalciferol (D-3) 1,000 UNIT TABLET PO SCH (07:12)
[2018-06-24] MEDS: *HR* HYDROcodone/Acet 5/325 mg TABLET PO PRN (07:13)
[2018-06-24 08:13] LABS: Aldolase, Serum 11.3 U/L (1.5-8.1)
[2018-06-24] MEDS ORDERED: predniSONE 20 MG TABLET PO SCH (09:00)
--- NOTE | 2018-06-24 11:13 | Internal Med Progress Note ---
Hospitalist Progress Note - Encounter Date of Encounter: 06/24/18 Time of Encounter: 09:30 - Subjective Interval History: Patient was seen and assessed at bedside at 9:30 AM. He was alert, awake, oriented. Female at bedside. Patient is anxious to be discharged. I explained to him that due to risk of renal disease, I would like it. Stay for continued IV hydration until his CK decreased. Patient reports he has too many kids to see while he is visiting. States he is visiting from [place]. He states that physician who saw him yesterday was going to give him a family doctor and that he wanted to leave. Again I emphasized I would like for him to stay for continued evaluation. He states that he wants to leave and wants to speak to physician he had yesterday because he was going to give him prescriptions for narcotic pain medication. I told him that physician was no longer here and that I would be in charge of his discharge and I would not give him narcotic pain medication. He states that he will just follow-up with his primary care physician, limits ago he stated he did not have a primary care physician. Patient states that he does not want to stay here and has decided to sign out AGAINST MEDICAL ADVICE. He denies headache, blurred vision, nausea , vomiting, diarrhea, chest pain or shortness of breath. He reports that his right lower extremity pain is intermittent and today he rates it a 3/10. On admission patient states that he could not walk, now he can. He denies need for medical devices or home health/physical therapy. - Exam Vitals: Temp Pulse Resp BP Pulse Ox 97.9 F 57 15 156/66 95 06/24/18 06:27 06/24/18 06:27 06/24/18 06:27 06/24/18 06:27 06/24/18 06:27 Exam: General: Pt resting quietly on bed, no distress. Skin: pwd, no rashes, lesions, redness Neurological: Pt is alert and awake, oriented x 3, Speech is clear, PERRLA, EOMI , no nystagmus, no pronator drift. strength equal x 4 extremities HEENT: mucous mumbranes moist, no conjuctival pallor Neck: supple, no tracheal deviation, no lymphadenopathy, tenderness, no thyromegaly Heart: S1S2 heard without gallops, clicks, murmurs, no bradycardia or tachycardia, pt has no peripheral edema, pedal and radial pulses palpable bilaterally. Lungs: clear throughout without wheezing, rales, or ronchi, respirations are unlabored Abdomen: soft and non tender with bowel sound present, no hepatomegaly. Psych: Normal affect with good eye contact Extremities: ROM to BLE WNL, +2 pedal pulses bilaterally, no peripheral edema to BLE. - Assessment and Plan (1) Pain of right lower extremity Status: Chronic Assessment and Plan: 62-year-old male with past medical history of severe PVD, status post recent stent placement to right external iliac artery 8 weeks ago presented with severe right leg pain. Per patient, pain started about 4 weeks ago, mainly located to the right internal thigh, worsened by walking, palpation, or movement. On the physical exam, right inner thigh is cold, tender to palpation , and the painful area is well demarcated. Labs revealed elevated CPK. 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 - Pain of the right lower extremity likely is caused by muscle damage/ inflammation of right adductor musculature. he also had elevated CPR and ESR, however, those are very nonspecific, and can be caused by infection, inflammation, muscle damage, or recent procedures. Given the severely stenosed right profunda fem[place] artery, which supplies blood to the right adductor muscle , it is possible that muscle damage/possible myositis is caused by severe ischemia. - Inflammatory myositis such as polymyositis/inclusion body myositis/ dermatomyositis was on the differential, although is less likely, EULALIO and aldose were ordered. May consult rheumatology if indicated. - IR was also consulted, planning muscle biopsy on next Sunday. We also will consult vascular surgery. 06/24- Pt was insistent that he go home today. I discussed plan of care with him regarding renal disease and elevated CK, pt states that he wants to go home and has "too many kids to see and things to do." Pt states that he was told by physician yesterday that he would find pt a PCP as well as give him prescriptions for narcotic pain medications. I told pt that I would not give narcotic pain medications and I discussed with him the importance of staying for continued treatment, and pt decided to sign out AMA. (2) Rhabdomyolysis Status: Acute Assessment and Plan: We will continue IV fluid, monitor CPK, monitor renal function panel. 06/24- CK decreasing, 1461 today. Pt signed out AMA despite educating him on the importance of continuing IVF and following with IR for muscle biopsy. (3) PVD (peripheral vascular disease) with claudication Status: Chronic Assessment and Plan: Same as above. (4) CAD (coronary artery disease) Status: Chronic Assessment and Plan: Pt denies chest pain. Continue ASA, Plavix, Lipitor. (5) DVT prophylaxis Status: Acute Assessment and Plan: Heparin subcutaneous. - Summary of Assessment and Plan Summary of Assessment and Plan: Plan as above. - Time Spent with Patient Total time spent is greater than 50% in coordination of care (as documented) at patient's floor/unit and/or counseling patient: less than 15 minutes Plan of Care Discussed with: patient Internal Medicine: Result - Labs CBC & Chem 7: 06/24/18 04:05 06/24/18 04:05 Labs: Short CBC 06/24/18 Range/Units 04:05 WBC 10.5 (4.3-11.1) K/mcL Hgb 14.0 D (12.9-16.9) g/dL Hct 41.8 (37.5-50.1) % Plt Count 218 (140-400) K/mcL Neutrophils # 9.4 H (1.6-8.9) K/mcL BMP 06/23/18 06/24/18 03:22 04:05 Sodium 130 L 135 L Potassium 3.8 3.4 L Chloride 102 103 Carbon Dioxide 18 L 25 BUN 6 L 9 Creatinine 0.59 L 0.61 L Glucose 158 H 117 H Calcium 8.9 9.0 - ABG Interpretation ABG results: PT/INR, D-dimer PT 12.1 Seconds (9.4-12.1) 06/21/18 10:05 Consult Discharge Plan - Plan Referrals: NONE,PCP [Primary Care Provider] - (2) Rhabdomyolysis Qualifiers: Rhabdomyolysis type: non-traumatic Qualified Code(s): M62.82 - Rhabdomyolysis (4) CAD (coronary artery disease) Qualifiers: Coronary Disease-Associated Artery/Lesion type: [place] artery [place] vs. transplanted heart: [place] heart Associated angina: without angina Qualified Code(s): I25.10 - Atherosclerotic heart disease of [place] coronary artery without angina pectoris
--- NOTE | 2018-06-24 11:42 | Discharge Summary ---
Orders not resulted at time of discharge: Pending orders 06/21/18 10:04 EULALIO Titer by IFA Routine Aldolase, Serum Routine Date of Encounter: 06/24/18 Time of Encounter: 09:30 - Discharge Diagnosis (1) Pain of right lower extremity Priority: Primary Status: Chronic Assessment and Plan: 62-year-old male with past medical history of severe PVD, status post recent stent placement to right external iliac artery 8 weeks ago presented with severe right leg pain. Per patient, pain started about 4 weeks ago, mainly located to the right internal thigh, worsened by walking, palpation, or movement. On the physical exam, right inner thigh is cold, tender to palpation , and the painful area is well demarcated. Labs revealed elevated CPK. 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 - Pain of the right lower extremity likely is caused by muscle damage/ inflammation of right adductor musculature. he also had elevated CPR and ESR, however, those are very nonspecific, and can be caused by infection, inflammation, muscle damage, or recent procedures. Given the severely stenosed right profunda femoris artery, which supplies blood to the right adductor muscle , it is possible that muscle damage/possible myositis is caused by severe ischemia. - Inflammatory myositis such as polymyositis/inclusion body myositis/ dermatomyositis was on the differential, although is less likely, EULALIO and aldose were ordered. May consult rheumatology if indicated. - IR was also consulted, planning muscle biopsy on next Sunday. We also will consult vascular surgery. 06/24- Pt was insistent that he go home today. I discussed plan of care with him regarding renal disease and elevated CK, pt states that he wants to go home and has "too many kids to see and things to do." Pt states that he was told by physician yesterday that he would find pt a PCP as well as give him prescriptions for narcotic pain medications. I told pt that I would not give narcotic pain medications and I discussed with him the importance of staying for continued treatment, and pt decided to sign out AMA. (2) Rhabdomyolysis Priority: Secondary Status: Acute Assessment and Plan: We will continue IV fluid, monitor CPK, monitor renal function panel. 06/24- CK decreasing, 1461 today. Pt signed out AMA despite educating him on the importance of continuing IVF and following with IR for muscle biopsy. Qualifiers: Rhabdomyolysis type: non-traumatic Qualified Code(s): M62.82 - Rhabdomyolysis (3) PVD (peripheral vascular disease) with claudication Priority: Secondary Status: Chronic Assessment and Plan: Same as above. (4) CAD (coronary artery disease) Priority: Secondary Status: Chronic Assessment and Plan: Pt denies chest pain. Continue ASA, Plavix, Lipitor. Qualifiers: Coronary Disease-Associated Artery/Lesion type: [place] artery [place] vs. transplanted heart: [place] heart Associated angina: without angina Qualified Code(s): I25.10 - Atherosclerotic heart disease of [place] coronary artery without angina pectoris (5) DVT prophylaxis Priority: Secondary Status: Acute Assessment and Plan: Heparin subcutaneous. Hospital course: Mr. Jones is a 62 year old male with past medical history of peripheral vascular disease, coronary artery disease, tobacco abuse, brain aneurysm. Patient signed out AGAINST MEDICAL ADVICE. Please see assessment and plan for hospital course. This discharge summary copied from progress note of same date by myself that was created in error. - Time Spent with Patient Total time spent providing and/or coordinating discharge services: Less than 30 minutes - Discharge Medications Home Medications: Amlodipine Besylate 10 mg PO DAILY 06/21/18 [History] Aspirin [Adult Aspirin] 81 mg PO DAILY 06/21/18 [History] Clopidogrel [Plavix] 75 mg PO DAILY 06/21/18 [History] Ergocalciferol (VITAMIN D2) [Vitamin D] 400 unit PO DAILY 06/21/18 [History] Furosemide [Lasix] 20 mg PO DAILY 06/21/18 [History] Omeprazole [PriLOSEC] 80 mg PO DAILY 06/21/18 [History] Rosuvastatin Calcium [Crestor] 5 mg PO Q48H 06/21/18 [History] Tamsulosin HCl [Flomax] 0.4 mg PO DAILY 06/21/18 [History] Allergies/Adverse Reactions: 3 Allergy/AdvReac Type Severity Reaction Status Date / Time No Known Allergies Allergy Verified 06/21/18 13:35 Date of admission: 06/21/18 14:34 Primary care physician: PCP NONE Consults: 06/21/18 15:07 Consult to Interventional Radiology [CONS] Routine Consulting Provider: Radiology Interventional Cols Reason for Consult: muscle biopsy needed for infection v myositis. Spoke with jorden Gallego pt NPO after midnight Sunday. Call Completed: Yes 06/21/18 16:25 Consult to Vascular Surgery [CONS] Routine Consulting Provider: Vascular Surgery Jessica Reason for Consult: PVD, muscle pain of right adductor muscle. Call Completed: Yes 06/22/18 00:52 Consult to Physical Therapy [CONS] Routine Comment: Evaluate, develop and implement POC Reason for Consult: Right lower extremity pain 2 months following successful right lower extremity bypass graft. Evaluate and implement assistance for ambulation Does patient have active BEDREST order?: No Is patient medically & hemodynamically stable?: Yes Patient assessed for mobility or mobilized this visit?: No Discharging clinician: Laxmi Rust Anticipated date of discharge: 06/24/18 - Constitutional Vitals: Temp Pulse Resp BP Pulse Ox 97.9 F 57 15 156/66 95 06/24/18 06:27 06/24/18 06:27 06/24/18 06:27 06/24/18 06:27 06/24/18 06:27 General appearance: Present: cooperative, A&O X 3, answers questions appropriately Exam: General: Pt resting quietly on bed, no distress. Skin: pwd, no rashes, lesions, redness Neurological: Pt is alert and awake, oriented x 3, Speech is clear, PERRLA, EOMI , no nystagmus, no pronator drift. strength equal x 4 extremities HEENT: mucous mumbranes moist, no conjuctival pallor Neck: supple, no tracheal deviation, no lymphadenopathy, tenderness, no thyromegaly Heart: S1S2 heard without gallops, clicks, murmurs, no bradycardia or tachycardia, pt has no peripheral edema, pedal and radial pulses palpable bilaterally. Lungs: clear throughout without wheezing, rales, or ronchi, respirations are unlabored Abdomen: soft and non tender with bowel sound present, no hepatomegaly. Psych: Normal affect with good eye contact Extremities: ROM to BLE WNL, +2 pedal pulses bilaterally, no peripheral edema to BLE. - Head Head exam: Present: atraumatic, normocephalic - Eye Eye exam: Present: PERRL, conjuntiva pink, sclera anicteric Pupils: Present: PERRL - Neck Neck exam general surgery: Present: supple, trachea midline. Absent: lymphadenopathy - Respiratory Respiratory exam: Present: CTAB. Absent: accessory muscle use, rales, rhonchi, wheezes - Cardiovascular Cardiovascular exam: Present: RRR, +S1, +S2. Absent: diastolic murmur, gallop, rubs, systolic murmur - GI/Abdominal GI/Abdominal exam: Present: normal bowel sounds, soft, no peritoneal signs. Absent: distended, tenderness - Extremities Exam Extremities exam: Present: warm, radial pulses palpable and symmetrical. Absent : calf tenderness, cyanotic, pedal edema - Neurological Exam Neurological exam: Present: CN II-XII intact, oriented X3, no focal deficits. Absent: pronater drift, facial droop, speech deficit - Skin Skin exam: Present: dry, intact - Patient Status Disposition: Left Against Medical Advice Condition: Good - Discharge Instructions Follow Up With: NONE,PCP [Primary Care Provider] -
[2018-06-28 07:25] LABS: ANA Titer by IFA <1:80 (<1:80)
== END 2018-06-24 09:50 | disposition left against medical advice (07) ==
LOC: EMEROOARM 09:01 → 3ANU 09:01
PROVIDERS: ADMIT Internal Medicine; ATTEND Internal Medicine